=== PATIENT | male | born 1995 | race African-American/Black ===

== ENCOUNTER 2017-04-02 00:08 | Emergency (ER) | payer MEDICAID ==
[~2017-04-02] VITALS: Ht 190.5 cm; Wt 172.4 kg
--- NOTE | 2017-04-02 00:17 | Emergency Room Report ---
History of Present Illness General Chief Complaint: Hypertension Source: Patient Present Illness HPI Is a 21-year-old male with no past medical history. He presents chief complaint of high blood pressure. He was at his girlfriend's house and complained of some dizziness when he stood up. He checked his blood pressure and it was 180/116. He has no symptoms. No nausea no vomiting. No chest pain. Came in to be evaluated. Does complaining of intermittent palpitation. Allergies: Coded Allergies: No Known Allergies (Unverified , 04/02/17) Patient History Past Medical History: see triage record, old chart reviewed Past Surgical History: none Social History: Denies: smoking Immunizations: other Reviewed Nursing Documentation: PMH: Agreed, PSxH: Agreed Review of Systems Eye: Denies: eye pain, blurred vision ENT: Denies: ear pain, nose congestion, throat swelling Respiratory: Denies: cough, shortness of breath Cardiovascular: Denies: chest pain, palpitations Gastrointestinal: Denies: abdominal pain, diarrhea, nausea, vomiting Musculoskeletal: Denies: back pain, joint pain Skin: Denies: rash Neurological: Denies: headache, numbness Endocrine: Denies: increased thirst, increased urine Hematologic/Lymphatic: Denies: easy bruising All Other Systems: negative except mentioned in HPI Physical Exam Vital Signs Date Time Temp Pulse Resp B/P (MAP) Pulse Ox O2 Delivery O2 Flow Rate FiO2 04/02/17 00:10 98.6 125 22 189/120 98 vitals with tachycardia and high blood pressure Sp02 EP Interpretation: reviewed, normal General Appearance: well appearing, no apparent distress, alert Head: normocephalic, atraumatic Eyes: bilateral eye PERRL, bilateral eye EOMI ENT: hearing grossly normal, normal pharynx Neck: full range of motion, supple, no meningismus Respiratory: chest non-tender, lungs clear, normal breath sounds Cardiovascular #1: regular rate, rhythm, no murmur, tachycardia Gastrointestinal: normal bowel sounds, non tender, no mass, no organomegaly, no bruit, non-distended Musculoskeletal: back normal, gait/station normal, normal range of motion Psychiatric: mood/affect normal Skin: warm/dry Medical Decision Making Diagnostic Impression: Primary Impression: Hypertension Qualified Codes: I10 - Essential (primary) hypertension Additional Impressions: Morbid obesity with BMI of 45.0-49.9, adult Proteinuria Qualified Codes: R80.9 - Proteinuria, unspecified ER Course This patient presents with high blood pressure. No evidence of endorgan damage. He does have proteinuria so will put him on an ARB. We'll discharge him. Lab Results Impression labs normal. EKG Diagnostic Results Rate: normal Rhythm: NSR ST Segments: other - LVH Rhythm Strip Diag. Results Rhythm Strip Time: 02:20 EP Interpretation: yes Rate: 95 Rhythm: NSR, no PVC's, no ectopy Last Vital Signs Date Time Temp Pulse Resp B/P (MAP) Pulse Ox O2 Delivery O2 Flow Rate FiO2 04/02/17 00:10 98.6 125 22 189/120 98 Status: improved Disposition: HOME, SELF-CARE Condition: Stable Scripts Losartan Potassium* (LOSARTAN POTASSIUM*) 50 Mg Tablet 50 MG ORAL DAILY, #90 TAB Prov: BISI ZARAGOZA M.D. 04/02/17 Patient Instructions: High Blood Pressure (Hypertension) Additional Instructions: Followup with your Dr. in 7 days for recheck. Return if symptom worsen. BISI ZARAGOZA M.D. Apr 02, 2017 00:17
[2017-04-02 01:13] VITALS: BP 169/78
[2017-04-02 01:22] LABS: BASOPHILS % (AUTO) 1.6 % (0.0-2.0); EOSINOPHILS % (AUTO) 1.6 % (0.0-3.0); LYMPHOCYTES % (AUTO) 29.9 % (20.0-45.0); MEAN CORPUSCULAR HEMOGLOBIN 29.6 PG (27.0-31.0); MEAN CORPUSCULAR HGB CONC 32.6 G/DL (32.0-36.0); MEAN CORPUSCULAR VOLUME 91 FL (80-99); MONOCYTES % (AUTO) 9.2 % (1.0-10.0); NEUTROPHILS % (AUTO) 57.7 % (45.0-75.0); PLATELET COUNT 415 K/UL (150-450); RED BLOOD COUNT 5.14 M/UL (4.70-6.10); RED CELL DISTRIBUTION WIDTH 11.5 % (11.6-14.8); WHITE BLOOD COUNT 10.3 K/UL (4.8-10.8)
[2017-04-02 01:28] LABS: ANION GAP 7 mmol/L (5-15); CALCIUM 9.6 MG/DL (8.5-10.1); CARBON DIOXIDE 30 MMOL/L (21-32); CHLORIDE 103 MMOL/L (98-107); CREATININE 1.1 MG/DL (0.55-1.30); GLOMERULAR FILTRATION RATE > 60 mL/min (>60); POTASSIUM 3.6 MMOL/L (3.5-5.1); SODIUM 140 MMOL/L (136-145)
[2017-04-02 01:44] LABS: THYROID STIMULATING HORMONE 5.205 uiU/mL (0.358-3.740)
[2017-04-02 01:51] LABS: APPEARANCE,URINE CLEAR; KETONES,URINE NEGATIVE (NEGATIVE); LEUKOCYTE ESTERASE ,URINE NEGATIVE (NEGATIVE); NITRITE,URINE NEGATIVE (NEGATIVE); PH,URINE 6 (4.5-8.0); PROTEIN,URINE 2+ (NEGATIVE); UROBILINOGEN,URINE 1 MG/DL (0.0-1.0)
[2017-04-02 01:53] LABS: RBC,URINE 0-2 /HPF (0 - 0); WBC,URINE 0 /HPF (0 - 0)
[2017-04-02] MEDS ORDERED: LOSARTAN POTASS50 MG ORAL (02:19)
[2017-04-02 02:25] VITALS: BP 169/78
--- NOTE | 2017-04-04 16:21 | Cardiology Report ---
APPROVED REPORT EKG Measurement Heart [id number] OR [id number] [id number] Sinus tachycardia Otherwise normal ECG
== END 2017-04-02 02:25 | disposition home or self-care (01) ==
LOC: EMR 00:20
DX: I10 Essential (primary) hypertension (principal); E66.01 Morbid (severe) obesity due to excess calories; Z68.42 Body mass index [BMI] 45.0-49.9, adult; R80.9 Proteinuria, unspecified
CPT/HCPCS: 36415; 80048; 80307; 81001; 84439; 84443; 85025; 93005; 99284